=== PATIENT | male | born 1975 | race Caucasian/White ===

== ENCOUNTER 2020-02-05 07:58 | Day surgery (SDC) | payer SELFPAY ==
[~2020-02-05 07:58] MED LIST: BENZONATATE200 MG PO; FLONASE NASAL50 MCG; MUCINEX600 MG PO; PREDNISONE10 MG PO; PRILOSEC20 MG/CAP PO
[2020-02-05] MEDS ORDERED: DICYCLOMINE10 MG PO (09:54)
[2020-02-05] MEDS ORDERED: PROTONIX40 M2 PO (09:54)
[2020-02-05 10:26] VITALS: BP 126/98
== END 2020-02-05 10:40 | disposition home or self-care (01) | DRG 392 ==
LOC: ENDO 07:58 → ORM 09:00 → ENDO 09:45
PROVIDERS: ATTEND Surgery
PROC: 0DB78ZX Excision of Stomach, Pylorus, Via Natural or Artificial Opening Endoscopic, Diagnostic (ICD-10-PCS; principal; 2020-02-05)
DX: K29.50 Unspecified chronic gastritis without bleeding (principal); K21.9 Gastro-esophageal reflux disease without esophagitis; Z11.59 Encounter for screening for other viral diseases